=== PATIENT | male | born 1995 | race Two or more races ===

== ENCOUNTER 2024-02-09 14:29 | Emergency (ER) | payer OTHER ==
[~2024-02-09] VITALS: Ht 175.3 cm; Wt 88.5 kg
[2024-02-09] MEDS ORDERED: NORFLEX100MG PO (16:12)
[2024-02-09] MEDS ORDERED: DICLOFENAC SODI75 MG PO (16:12)
[2024-02-09] MEDS ORDERED: TRIAMCINOLONE ACETONIDE 40 MG/ML VIAL IM ONE (16:15)
[2024-02-09] MEDS ORDERED: KETOROLAC TROMETHAMINE 60 MG VIAL IM ONE (16:15)
[2024-02-09 18:02] VITALS: BP 120/68; O2SAT 99
== END 2024-02-09 18:03 | disposition home or self-care (01) ==
LOC: ER 14:30
DX: M54.9 Dorsalgia, unspecified (principal); Z88.0 Allergy status to penicillin

== ENCOUNTER → 2024-10-15 | Emergency (ER) | payer OTHER ==
[~2024-10-15] VITALS: Ht 180.3 cm; Wt 87.1 kg
[~2024-10-15] MED LIST: BACLOFEN10 MG PO; DEXAMETHASONE SODIUM PHOSPHATE 4 MG/ML VIAL IM ONE; DICLOFENAC SODI75 MG PO; KETOROLAC TROMETHAMINE 60 MG VIAL IM ONE; NORFLEX100MG PO; ORPHENADRINE CITRATE 30 MG/ML AMPUL IM ONE
== END | disposition home or self-care (01) ==
LOC: ER 16:34
DX: M54.89 Other dorsalgia (principal); Z88.0 Allergy status to penicillin